=== PATIENT | male | born 1990 | race Caucasian/White ===

== ENCOUNTER 2021-10-26 13:42 | Emergency (ER) | payer OTHER, SELFPAY ==
--- NOTE | ~2021-10-26 | XR_ITS ---
XR wrist RT min 3V DATE: 10/26/2021 14:01 INDICATION: Fall, right wrist injury, pain TECHNIQUE: 4 views COMPARISON: None FINDINGS: No fracture or dislocation, periosteal reaction or bone destruction, joint space narrowing, erosive change or chondrocalcinosis. IMPRESSION: Negative Reviewed, dictated and finalized at location A. IMPRESSION: Negative
[2021-10-26 13:50] VITALS: BP 140/56; PULSE 82; RESP 16; TEMP 36.8; O2SAT 97
--- NOTE | 2021-10-26 14:47 | ED.UPPEXIN ---
HPI - Extremity Injury (Upper) General Chief Complaint: Extremity Injury, Upper Stated Complaint: Right Wrist Injury Time Seen by Provider: 10/26/21 14:49 Source: patient and RN notes reviewed Mode of arrival: ambulatory Limitations: no limitations History of Present Illness HPI narrative: 31-year-old male presents with concern for right wrist injury. Reports he was skateboarding last night and he fell several times onto the concrete. Reports he is right-hand dominant. He reports he landed on his wrist at one point. complaint: injury to: right and wrist Related Data Home Medications Medication Instructions Recorded Confirmed No Home Medications 10/26/21 10/26/21 Allergies Allergy/AdvReac Type Severity Reaction Status Date / Time fish derived AdvReac Severe n Verified 10/26/21 14:09 Bumble Bee AdvReac Severe юлия Uncoded 10/26/21 14:09 Review of Systems Review of Systems: CONSTITUTIONAL: Denies malaise, chills, sweats, or fever. CARDIOVASCULAR: Denies chest pain, palpitations, or edema. RESPIRATORY: Denies cough or dyspnea. SKIN: Denies rash or itching, bruising, redness, swelling. MUSCULOSKELETAL: Reports right wrist pain, swelling, bruising, limited range of motion NEUROLOGIC: Denies numbness, weakness All systems reviewed & are unremarkable except as noted in HPI and below PMFSH Comments At time of signature, agree with nursing past medical, surgical, social and family history. There is no relevant family history pertinent to the presenting complaint Exam Narrative: GENERAL: Well-appearing, well-nourished, and in no acute distress. HEAD: Normocephalic, atraumatic. EYES: PERRLA, conjunctivae clear NECK: Supple. CHEST: Speaks in full sentences. No respiratory distress. HEART: Regular rate and rhythm. Normal and equal peripheral pulses. EXTREMITIES: Right wrist, hand, digits have normal strength and sensation, limited range of motion. Mild palmar edema and ecchymosis. 5/5 strength with digit flexion and extension. Normal sensation with sensitivity to light touch and pain. Palmar wrist tenderness. No open wounds, no skin tenting, no devitalized tissue or atrophy, no trophic changes, no obvious deformity, alignment normal, nearby joints and structures intact. Distal pulses palpable and equal bilaterally, skin warm, dry, pink. Capillary refill less than 3 seconds. SKIN: Warm, dry, no rash. NEURO: Alert and oriented x3. PSYCH: Normal mood and affect Course Course Emergency Course: Patient is aware of diagnosis, understands and agrees to treatment plan. Anticipatory guidance given. Patient agrees to follow-up as directed and is aware of reasons to seek care at the emergency department. Portions of this record may have been created with voice recognition software Level of Care: Express Care Visit Vital Signs Vital signs: Vital Signs Temperature 98.2 F 10/26/21 13:50 Pulse Rate 82 10/26/21 13:50 Respiratory Rate 16 10/26/21 13:50 Blood Pressure 140/56 L 10/26/21 13:50 Pulse Oximetry 97 10/26/21 13:50 Temperature 98.2 F 10/26/21 13:50 Pulse Rate 82 10/26/21 13:50 Respiratory Rate 16 10/26/21 13:50 Blood Pressure 140/56 L 10/26/21 13:50 Pulse Oximetry 97 10/26/21 13:50 Reviewed. MDM - Extremity Injury (Upper) MDM Narrative Medical decision making narrative: Patients injury and pain is consistent with musculoskeletal etiology. No signs of neurological or vascular compromise on exam. Compartments and tissues are soft without signs of compartment syndrome. Pain is felt appropriate for further evaluation on an outpatient basis. Imaging Data My impression: Images reviewed, interpreted by radiologist, agree, see report. Radiologist's impression: XR wrist RT min 3V DATE: 10/26/2021 14:01 INDICATION: Fall, right wrist injury, pain TECHNIQUE: 4 views COMPARISON: None FINDINGS: No fracture or dislocation, periosteal reaction or bone destruction, joint space narrowing, eros
== END 2021-10-26 15:00 | disposition home or self-care (01) ==
PROVIDERS: Emergency Provider Nurse Practitioner
DX: S63.501A Unspecified sprain of right wrist, initial encounter (principal); S66.911A Strain of unspecified muscle, fascia and tendon at wrist and hand level, right hand, initial encounter; W19.XXXA Unspecified fall, initial encounter; Y93.51 Activity, roller skating (inline) and skateboarding
CPT/HCPCS: 73110; 99203; G0463

== ENCOUNTER 2021-11-18 11:57 | Emergency (ER) | payer OTHER, SELFPAY ==
--- NOTE | ~2021-11-18 | XR_ITS ---
XR ankle RT min 3V DATE: 11/18/2021 12:21 INDICATION: Rolled ankle yesterday. Generalized pain, swelling TECHNIQUE: 3 views of right ankle COMPARISON: None FINDINGS: Moderate lateral soft tissue swelling. No fracture or dislocation of the ankle or disruptio n of the ankle mortise. No periosteal reaction or bone destruction. IMPRESSION: Lateral soft tissue swelling Reviewed, dictated and finalized at location A.
--- NOTE | 2021-11-18 12:04 | ED.LOWEXIN ---
HPI - Extremity Injury (Lower) General Chief Complaint: Extremity Injury, Lower Stated Complaint: right leg injury Time Seen by Provider: 11/18/21 12:04 Source: patient and RN notes reviewed History of Present Illness HPI Narrative: Patient is a 31-year-old male who presents the urgent care with complaints of right swollen ankle with pain. Patient states that yesterday he rolled it while skateboarding. Patient states that he has injured the ankle in the past but denies any past fractures. States he has been keeping it elevated with ice and has not used anything [id number] for pain. No other acute complaints or injuries. No acute distress noted. Patient aware of the plan of care. Some parts of this dictation were generated by voice recognition software and may contain typographical and/or grammatical inaccuracies. Related Data Home Medications Medication Instructions Recorded Confirmed No Home Medications 10/26/21 10/26/21 Allergies Allergy/AdvReac Type Severity Reaction Status Date / Time fish derived AdvReac Severe n Verified 11/18/21 12:26 Bumble Bee AdvReac Severe юлия Uncoded 11/18/21 12:26 Review of Systems Review of Systems: CONSTITUTIONAL: Denies fever, chills, or sweats. EYES: Denies visual changes, redness, or discharge. ENT: Denies rhinorrhea, congestion, sore throat, or otalgia. CARDIOVASCULAR: Denies chest pain, palpitations, or edema. RESPIRATORY: Denies cough or dyspnea. GASTROINTESTINAL: Denies abdominal pain, nausea, vomiting, or diarrhea. GENITOURINARY: Denies dysuria or hematuria. SKIN: Denies rash or itching. MUSCULOSKELETAL: Reports of right ankle swelling and pain NEUROLOGIC: Denies headache, numbness, or weakness. All other systems reviewed are negative, except as documented in HPI. PMFSH Comments At the time of my signature, I reviewed and agree with the nursing past medical, surgical, social, and family history. There is no relevant family history pertinent to the patient complaint. Exam Narrative: GENERAL: This is a well-nourished, well-developed patient, in no apparent distress. HEAD: normocephalic, atraumatic. EYES: PERRL. Sclera clear/white. Vision is grossly intact. EARS: External ears normal NOSE: External nose normal with no obvious nasal discharge, nares without redness, no rhinorrhea. THROAT: Mucous membranes moist NECK: Neck supple CARDIOVASCULAR: Regular rate and rhythm without murmurs, gallops, or rubs. RESPIRATORY: Clear to auscultation. Breath sounds equal bilaterally. No wheezes, rales, or rhonchi. SKIN: warm, intact with no suspicious lesions or rash, good texture and turgor. NEURO: awake, alert, and oriented to person, place and time. There were no obvious focal neurologic abnormalities. EXTREMITIES: Mild medial right malleolus edema/tenderness with moderate lateral right malleolus tenderness and edema without ecchymosis or obvious deformity or fracture. Positive strong right pedal pulse with capillary refill less than 2 seconds. Range of motion not tested due to pain. Course Course Level of Care: Express Care Visit Vital Signs Vital signs: Vital Signs Temperature 99.2 F 11/18/21 12:10 Pulse Rate 84 11/18/21 12:10 Respiratory Rate 20 11/18/21 12:10 Blood Pressure 134/84 11/18/21 12:10 Pulse Oximetry 98 11/18/21 12:10 Oxygen Delivery Room Air 11/18/21 12:10 Temperature 99.2 F 11/18/21 12:10 Pulse Rate 84 11/18/21 12:10 Respiratory Rate 20 11/18/21 12:10 Blood Pressure 134/84 11/18/21 12:10 Pulse Oximetry 98 11/18/21 12:10 Oxygen Delivery Room Air 11/18/21 12:10 Reviewed MDM - Extremity Injury (Lower) MDM Narrative Medical decision making narrative: Reviewed x-ray results with the patient. He is aware that there is no fracture or deformity noted on x-ray. Advised the patient to wear the Billy wrap as directed. Keep it elevated with ice and use Tylenol/ibuprofen as needed for pain. Avoid any strenuous activit
[2021-11-18 12:10] VITALS: BP 134/84; PULSE 84; RESP 20; TEMP 37.3; O2SAT 98
== END 2021-11-18 12:45 | disposition home or self-care (01) ==
PROVIDERS: Emergency Provider Nurse Practitioner Family
DX: S93.401A Sprain of unspecified ligament of right ankle, initial encounter (principal); S96.911A Strain of unspecified muscle and tendon at ankle and foot level, right foot, initial encounter; X50.9XXA Other and unspecified overexertion or strenuous movements or postures, initial encounter; Y93.51 Activity, roller skating (inline) and skateboarding; Y92.9 Unspecified place or not applicable
CPT/HCPCS: 73610; 99213; G0463

== ENCOUNTER 2023-03-11 17:30 | Emergency (ER) | payer OTHER, SELFPAY ==
[2023-03-11 17:35] VITALS: BP 143/83; PULSE 61; RESP 20; TEMP 36.5; O2SAT 99
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
== END 2023-03-11 18:25 | disposition home or self-care (01) ==
PROVIDERS: Emergency Provider Nurse Practitioner
DX: M54.50 Low back pain, unspecified (principal); V43.52XA Car driver injured in collision with other type car in traffic accident, initial encounter
CPT/HCPCS: 99213; G0463

== ENCOUNTER 2023-05-24 16:04 | Emergency (ER) | payer OTHER, SELFPAY ==
[2023-05-24 16:10] VITALS: BP 129/88; PULSE 95; RESP 16; TEMP 36.6; O2SAT 97
--- NOTE | 2023-05-24 16:14 | ED.EAR ---
HPI - Ear Problem General Chief complaint: Ear Stated complaint: Ear Pain History of Present Illness HPI Narrative: PATIENT PRESENTS WITH A 10 DAY HISTORY OF NASAL CONGESTION AND BILATERAL EAR PAIN. NO DRAINAGE FROM HIS EARS HAS TAKEN DAYQUIL AND NYQUIL [id number] FOR SYMPTOMS. Related Data Allergies Allergy/AdvReac Type Severity Reaction Status Date / Time bee venom protein (honey bee) Allergy Severe Anaphylactic Verified 05/24/23 16:06 [bees] Shock fish derived AdvReac Severe Unknown Verified 05/24/23 16:06 Review of Systems Review of Systems: CONSTITUTIONAL: DENIES CHILLS, OR SWEATS. REPORTS FEVER AND GENERALIZED BODY ACHES EYES: DENIES VISUAL CHANGES, REDNESS, OR DISCHARGE. ENT: DENIES OTALGIA. REPORTS NASAL CONGESTION RUNNY NOSE AND SORE THROAT CARDIOVASCULAR: DENIES CHEST PAIN, PALPITATIONS, OR EDEMA. RESPIRATORY: DENIES DYSPNEA. REPORTS OCCASIONAL COUGH GASTROINTESTINAL: DENIES ABDOMINAL PAIN, NAUSEA, VOMITING, OR DIARRHEA. GENITOURINARY: DENIES DYSURIA OR HEMATURIA. SKIN: DENIES RASH OR ITCHING. MUSCULOSKELETAL: DENIES BACK PAIN, JOINT PAIN, OR MYALGIA. REPORTS GENERALIZED BODY ACHES NEUROLOGIC: DENIES HEADACHE, NUMBNESS, OR WEAKNESS. PSYCHIATRIC: DENIES ANXIETY OR DEPRESSION. PMFSH Comments AT TIME OF SIGNATURE, AGREE WITH NURSING PAST MEDICAL, SURGICAL, SOCIAL AND FAMILY HISTORY. THERE IS NO RELEVANT FAMILY HISTORY PERTINENT TO THE PRESENTING COMPLAINT Exam Narrative: THE PATIENT IS A WELL-DEVELOPED, WELL-NOURISHED IN NO ACUTE DISTRESS. SKIN: SKIN IS WARM AND DRY WITHOUT ERYTHEMA, SWELLING OR EXUDATE. THERE IS GOOD TURGOR. NO TENTING. HEAD: ATRAUMATIC. NORMOCEPHALIC. NO TEMPORAL OR SCALP TENDERNESS. EYES: MOIST AND BRIGHT. SCLERA AND CONJUNCTIVAE NORMAL. NO DISCHARGE. PERRLA. EXTRAOCULAR MOTIONS INTACT. GROSS VISUAL ACUITY INTACT. EARS: PINNA IS NORMAL SHAPE AND CONTOUR. CLEAR EXTERNAL AUDITORY CANALS. TM PEARLY HYLTON WITH GOOD CONE OF LIGHT, NO ERYTHEMA OR SUPPURATION. BILATERAL CERUMEN NOTED NO GROSS HEARING DEFICIT. NOSE: PINK, MOIST MUCOSA WITH GOOD AIR MOVEMENT. CLEAR RHINORRHEA WITHOUT NASAL FLARING. SEPTUM MIDLINE. MOUTH: MOIST MUCOUS MEMBRANES. THROAT; MILD ERYTHEMA NOTED TO POSTERIOR OROPHARYNX WITH MODERATE POSTNASAL DRAINAGE. WITHOUT EXUDATE OR ULCERATION.. UVULA MIDLINE. NORMAL MOVEMENT OF SOFT PALATE. NECK: SUPPLE AND NONTENDER WITH FULL RANGE OF MOTION WITHOUT DISCOMFORT. NO MENINGEAL SIGNS. LUNGS: EQUAL AND BILATERAL BREATH SOUNDS WITHOUT WHEEZES, RALES OR RHONCHI. CHEST: THE CHEST WALL IS WITHOUT RETRACTIONS OR USE OF ACCESSORY MUSCLES. HEART: HAS A REGULAR RATE AND RHYTHM WITHOUT MURMUR, GALLOPS, CLICK OR RUB. ABDOMEN: SOFT, NONTENDER WITH POSITIVE ACTIVE BOWEL SOUNDS. NO REBOUND TENDERNESS. EXTREMITIES: WITHOUT CYANOSIS, CLUBBING OR EDEMA. EQUAL 2+ DISTAL PULSES AND 2 SECOND CAPILLARY REFILL NOTED. NEUROLOGIC: ALERT, ACTIVE, . THE PATIENT MOVES ALL EXTREMITIES WITH NORMAL MUSCLE STRENGTH. NORMAL MUSCLE TONE IS NOTED. NORMAL COORDINATION IS NOTED. NO FOCAL NEUROLOGICAL FINDINGS NOTED. HENMT: Ears: Abnormal EAC present erythema on the left and TM abnormal bulging on the left Course Course Level of Care: Express Care Visit Discharge Plan Discharge Clinical Impression: Otitis media Patient Disposition: Home, Self-Care Condition: Stable Instructions: Antibiotic Form, Ear Infection (ED) Additional Instructions: CONGESTION - FLONASE AM AND PM FOR CHRONIC SINUS CONGESTION OR PROLONGED SYMPTOMS OF SINUSITIS (TAKES SEVERAL DAYS TO WORK). ONE TO THREE TIMES A DAY OF IRRIGATION OF SINUS WITH SALINE SPRAY, OCEAN NASAL SPRAY OR [place] POT. FLUIDS. IF YOU DON'T HAVE HYPERTENSION-AFRIN NASAL SPRAY WITH A 3 DAY LIMIT FOR IMMEDIATE RELIEF OF SINUS CONGESTION. FOR RUNNY NOSE: DO OVER THE COUNTER ANTIHISTAMINE (CLARITIN, BENADRYL, ZYRTEC) FOR SNEEZING, RUNNY NOSE. ALLERGIES. SUDAFED OR DECONGESTANT CAN ALSO BE USED, UNLESS YOU HAVE
== END 2023-05-24 16:25 | disposition home or self-care (01) ==
PROVIDERS: Emergency Provider Nurse Practitioner Family
DX: H66.92 Otitis media, unspecified, left ear (principal)
CPT/HCPCS: 99213; G0463